=== PATIENT | female | born 1965 | race Caucasian/White ===

== ENCOUNTER 2017-06-22 06:23 | Day surgery (SDC) | payer OTHER ==
[~2017-06-22 06:23] MED LIST: Lactated Ringers 1,000 ML IV SCH
[2017-06-22] MEDS ORDERED: Ondansetron 4 MG/2 ML SDV ONE (07:34)
[2017-06-22] MEDS ORDERED: fentaNYL 100 MCG/2 ML SDV ONE (07:35)
[2017-06-22] MEDS ORDERED: Midazolam 1 MG/ML 2 ML SDV ONE (07:35)
[2017-06-22] MEDS ORDERED: Propofol 200 MG/20 ML SDV ONE (07:35)
--- NOTE | 2017-06-22 07:35 | PCM.PREANE ---
Preanesthetic Assessment - Anesthesia/Transfusion/Family Hx Anesthesia History: Prior Anesthesia Without Reaction Family History of Anesthesia Reaction: No Transfusion History: No Prior Transfusion(s) - Review of Systems General: No Symptoms Pulmonary: No Symptoms Cardiovascular: No Symptoms Neurological: No Symptoms Other: Reports: None - Physical Assessment NPO Status Date: 06/21/17 O2 Sat by Pulse Oximetry: 96 Respiratory Rate: 16 Vital Signs: Last Vital Signs Temp 37.3 C 06/22/17 06:50 Pulse 82 06/22/17 06:50 Resp 16 06/22/17 06:50 BP 125/72 06/22/17 06:50 Pulse Ox 96 06/22/17 06:50 Height: 1.65 m Weight: 72.121 kg ASA Class: 2 Mental Status: Alert & Oriented x3 Airway Class: Mallampati = 1 Dentition: Reports: Normal Dentition ROM/Head Extension: Full Lungs: Clear to Auscultation, Normal Respiratory Effort Cardiovascular: Regular Rate, Regular Rhythm - Lab Values: Laboratory Last Values Urine HCG, Qual NEGATIVE (NEGATIVE) 06/22/17 06:26 - Allergies Allergies/Adverse Reactions: Allergies Allergy/AdvReac Type Severity Reaction Status Date / Time No Known Allergies Allergy Verified 06/17/17 09:05 - Anesthesia Plan Pre-Op Medication Ordered: None - Acknowledgements Anesthesia Type Planned: MAC Pt an Appropriate Candidate for the Planned Anesthesia: Yes Alternatives and Risks of Anesthesia Discussed w Pt/Guardian: Yes Pt/Guardian Understands and Agrees with Anesthesia Plan: Yes PreAnesthesia Questionnaire - Past Health History Medical/Surgical History: Denies Medical/Surgical History Psychiatric History: Reports: Depression Immunologic History: Reports: Other (See Below) Other Immunologic History: shogren's syndrome - Past Surgical History Head Surgeries/Procedures: Reports: None Musculoskeletal Surgical History: Reports: Other (See Below) Other Musculoskeletal Surgeries/Procedures:: ankle surgery in high school - SUBSTANCE USE Smoking Status *Q: Never Smoker Recreational Drug Use History: No - HOME MEDS Home Medications: Home Meds Norethindrone-Ethinyl Estrad [Shannon 0.5/0.035 mg 28 Tablet] 1 tab PO DAILY [History] buPROPion HCl [Wellbutrin Xl] 1 tab PO DAILY 06/17/17 [History] - CURRENT (IN HOUSE) MEDS Current Meds: Current Medications Lactated Ringer's (Ringers, Lactated) 1,000 mls @ 125 mls/hr IV ASD[facility]ED [facility] Last Admin: 06/22/17 07:04 Dose: 125 mls/hr
[2017-06-22] MEDS ORDERED: Ondansetron 4 MG Tab.DIS PO PRN (09:02)
--- NOTE | 2017-06-22 09:07 | PCM.OPNOTE ---
- General Post-Op/Procedure Note Date of Surgery/Procedure: 06/22/17 Operative Procedure(s): Esophagogastroduodenoscopy with biopsy. Colonoscopy. Pre Op Diagnosis: Progressive heartburn. Recent change in bowel habits. Desire for colorectal cancer screening. Post-Op Diagnosis: Gastritis and esophagitis. No evidence of colonic neoplasia. Anesthesia Technique: MAC (ASA II) Primary Surgeon: Nico Marquez Pump Installer: Rick Fraser Condition: Good Free Text/Narrative:: DICTATION [id number] CPT CODE [id number]
[2017-06-22] MEDS ORDERED: Lactated Ringers 1,000 ML IV SCH (09:15)
--- NOTE | 2017-06-22 09:15 | PCM.POSTAN ---
POST ANESTHESIA ASSESSMENT - MENTAL STATUS Mental Status: Alert, Oriented - RESPIRATORY Respiratory Status: Respiratory Rate WNL, Airway Patent, O2 Saturation Stable - CARDIOVASCULAR CV Status: Pulse Rate WNL, Blood Pressure Stable - GASTROINTESTINAL GI Status: No Symptoms - POST OP HYDRATION Hydration Status: Adequate & Stable
--- NOTE | 2017-06-22 09:39 | PCM48HPAN ---
Post Anesthesia Note - EVALUATION WITHIN 48HRS OF ANESTHETIC Vital Signs in Normal Range: Yes Patient Participated in Evaluation: Yes Respiratory Function Stable: Yes Airway Patent: Yes Cardiovascular Function Stable: Yes Hydration Status Stable: Yes Pain Control Satisfactory: Yes Nausea and Vomiting Control Satisfactory: Yes Mental Status Recovered: Yes Resp Rate: 19
[2017-06-22 09:52] VITALS: BP 106/55
--- NOTE | 2017-06-22 09:55 | OR ---
SURGEON: Nico Marquez M.D. DATE OF PROCEDURE: 06/22/2017 OPERATION PERFORMED: Colonoscopy. MOBILE DEVICE DEVELOPER: Lavell Fraser, PGY3. ANESTHESIA: MAC. [employer] CLASSIFICATION: II. PREOPERATIVE DIAGNOSIS: Desire for colorectal cancer screening. POSTOPERATIVE DIAGNOSIS: No evidence of neoplasia. DESCRIPTION OF PROCEDURE: With the patient having completed esophagogastroduodenoscopy with biopsy, she was now positioned in the left lateral decubitus position. The colonoscope was introduced into the rectum and advanced with minimal difficulty to the cecum, where the colonoscope was retroflexed to visualize the ascending colon from below. The colonoscope was then straightened and slowly withdrawn. The cecum, ascending colon, hepatic flexure, transverse colon, splenic flexure, descending colon, sigmoid colon, and rectum were well visualized. No tumors, polyps, diverticula, or angiodysplastic changes were noted anywhere throughout the lower gastrointestinal tract. There was no evidence of inflammatory bowel disease. Once the colonoscope was withdrawn to the rectum, it was retroflexed to visualize the anal orifice from above. Again, no tumors or polyps were seen, and there were no acute hemorrhoidal changes. The colonoscope was then straightened, the rectum aspirated, and the colonoscope was removed. The patient tolerated the procedure well and was taken to the recovery room in stable condition. JESICA GALARZA /[id number] MTDDo
--- NOTE | 2017-06-22 11:52 | OR ---
SURGEON: Nico Marquez M.D. DATE OF PROCEDURE: 06/22/2017 OPEARTION PERFORMED: Esophagogastroduodenoscopy with biopsy. AIRCRAFT INSTRUMENT REPAIRER: ANA Fraser3. ANESTHESIA: MAC. [employer] CLASSIFICATION: II. PREOPERATIVE DIAGNOSES: 1. Persistent and progressive heartburn. 2. Family history of celiac disease. POSTOPERATIVE DIAGNOSES: 1. Gastritis and esophagitis. 2. Hiatal hernia. DESCRIPTION OF PROCEDURE: The patient was taken to the endoscopy room, positioned on the endoscopy table in the supine position. Time-out was called for appropriate identification of the patient and procedure. Monitored anesthesia care was provided. The bite block was placed between the patient's teeth. The gastroscope was inserted through the bite block into the oropharynx and advanced without difficulty through the esophagus and stomach into the duodenum where examination was now carried out in a retrograde fashion. The duodenum shows no acute inflammatory changes or ulcerations. Biopsies were taken given her family history of celiac disease. The gastroscope was then withdrawn to the distal stomach, which does show a [id number] gastritis. Antral biopsies were obtained to look for the presence of Helicobacter pylori. The gastroscope was then retroflexed to visualize the proximal stomach. The patient does have a large hiatal hernia. There is also evidence of esophagitis noted as the scope was withdrawn. No tumors or ulcerations were noted in the cardia of the stomach. The gastroscope was then straightened, the stomach aspirated, and the scope slowly withdrawn. The esophagus does demonstrate what appears to be acute esophagitis. Biopsies were obtained. The esophagus itself demonstrates fair contractility. No mid or proximal lesions were identified. The vocal cords were visualized as the scope was withdrawn and noted to move symmetrically. The gastroscope was then removed with the patient having tolerated this portion of the procedure well. Following colonoscopy, she was taken to recovery room in stable condition. JESICA / GEOVANNI /[id number]
== END 2017-06-22 09:31 | disposition home or self-care (01) ==
LOC: MW.SDS 06:23
PROVIDERS: ATTEND Surgery
DX: Z12.11 Encounter for screening for malignant neoplasm of colon (principal); K29.50 Unspecified chronic gastritis without bleeding; K20.9 Esophagitis, unspecified; K44.9 Diaphragmatic hernia without obstruction or gangrene; Z79.899 Other long term (current) drug therapy
CPT/HCPCS: 43239; 45378; 81025; 88305; 88312; J2250; J2405; J3010; J7120; 00813; J2704